=== PATIENT | female | born 1980 | race Two or more races ===

== ENCOUNTER 2018-03-21 13:24 | Outpatient (CLI) | payer OTHER ==
[~2018-03-21 13:24] MED LIST: BENADRYL50 MG PO; CIPRO500 MG PO; LEVSIN0.125 MG PO; MEDROL4 MG PO; ULTRACET PO; ZANTAC300 MG PO; ZOFRAN4 MG PO
== END 2018-03-21 16:42 | disposition home or self-care (01) ==
LOC: RAD 13:24
DX: M12.861 Other specific arthropathies, not elsewhere classified, right knee (principal); M19.90 Unspecified osteoarthritis, unspecified site

== ENCOUNTER 2018-04-17 06:57 | Outpatient (CLI) | payer OTHER | END 2018-04-17 17:00 | disposition home or self-care (01) | LOC: MAMO-SONO 06:57 | DX: Z12.31 Encounter for screening mammogram for malignant neoplasm of breast (principal); N64.4 Mastodynia; R10.9 Unspecified abdominal pain; N63.10 Unspecified lump in the right breast, unspecified quadrant; N63.20 Unspecified lump in the left breast, unspecified quadrant; R10.2 Pelvic and perineal pain ==

== ENCOUNTER 2018-04-22 08:10 | Outpatient (CLI) | payer OTHER | END 2018-04-22 08:17 | disposition home or self-care (01) | LOC: RAD 08:10 | DX: J44.9 Chronic obstructive pulmonary disease, unspecified (principal) ==

== ENCOUNTER 2019-01-07 12:46 | Outpatient (CLI) | payer OTHER | END 2019-01-07 12:51 | disposition home or self-care (01) | LOC: LAB 12:46 | DX: G43.909 Migraine, unspecified, not intractable, without status migrainosus (principal) ==

== ENCOUNTER 2019-02-03 07:51 | Outpatient (CLI) | payer OTHER | END 2019-02-03 08:06 | disposition home or self-care (01) | LOC: TOM 07:51 | DX: G43.909 Migraine, unspecified, not intractable, without status migrainosus (principal) ==

== ENCOUNTER → 2019-03-26 | Emergency (ER) | payer OTHER ==
[~2019-03-26] VITALS: Ht 157.5 cm; Wt 60.3 kg
== END | disposition home or self-care (01) ==
LOC: ER 12:40
DX: K29.70 Gastritis, unspecified, without bleeding (principal)

== ENCOUNTER → 2020-04-12 | Outpatient (CLI) | payer OTHER | END | disposition home or self-care (01) | LOC: MAMO-SONO 09:45 | DX: Z12.31 Encounter for screening mammogram for malignant neoplasm of breast (principal); N64.59 Other signs and symptoms in breast; N60.02 Solitary cyst of left breast; N60.01 Solitary cyst of right breast ==

== ENCOUNTER 2020-04-26 07:43 | Outpatient (CLI) | payer OTHER | END 2020-04-26 08:03 | disposition HB | LOC: TOM 07:43 | DX: R10.2 Pelvic and perineal pain (principal); R10.84 Generalized abdominal pain ==

== ENCOUNTER 2020-06-17 16:52 | Outpatient (CLI) | payer OTHER | END 2020-06-17 16:53 | disposition home or self-care (01) | LOC: RAD 16:52 | DX: R07.89 Other chest pain (principal); J44.9 Chronic obstructive pulmonary disease, unspecified ==

== ENCOUNTER 2020-10-12 21:10 | Emergency (ER) | payer OTHER ==
[~2020-10-12] VITALS: Ht 157.5 cm; Wt 60.8 kg
[2020-10-13] MEDS ORDERED: PYRIDIUM DS200 MG PO (02:53)
[2020-10-13] MEDS ORDERED: CEPHALEXIN500 M1 PO (02:53)
== END 2020-10-13 03:17 | disposition home or self-care (01) ==
LOC: ER 21:10
DX: N20.1 Calculus of ureter (principal)

== ENCOUNTER 2021-10-12 07:46 | Emergency (ER) | payer OTHER ==
[~2021-10-12] VITALS: Ht 157.5 cm; Wt 46.7 kg
[~2021-10-12 07:46] MED LIST changes: +CEPHALEXIN500 M1 PO; +PYRIDIUM DS200 MG PO
[2021-10-12] MEDS ORDERED: CYCLOBENZAPRINE10 MG PO (10:30)
[2021-10-12] MEDS ORDERED: ULTRAM50 MG PO (10:30)
== END 2021-10-12 10:36 | disposition home or self-care (01) ==
LOC: ER 07:46
DX: R07.89 Other chest pain (principal); Z20.822 Contact with and (suspected) exposure to COVID-19; Z88.8 Allergy status to other drugs, medicaments and biological substances; Z88.6 Allergy status to analgesic agent; Z91.040 Latex allergy status

== ENCOUNTER 2021-10-31 07:32 | Outpatient (CLI) | payer OTHER ==
[~2021-10-31 07:32] MED LIST changes: +CYCLOBENZAPRINE10 MG PO; +ULTRAM50 MG PO
== END 2021-10-31 07:45 | disposition home or self-care (01) ==
LOC: TOM 07:32
PROVIDERS: ATTEND Internal Medicine Cardiovascular Disease
DX: J44.9 Chronic obstructive pulmonary disease, unspecified (principal)

== ENCOUNTER 2023-01-29 07:44 | Outpatient (CLI) | payer OTHER ==
[~2023-01-29 07:44] MED LIST changes: +LIDOCAINE15 GM TOP
== END 2023-01-29 08:06 | disposition home or self-care (01) ==
LOC: MAMO-SONO 07:44
PROVIDERS: ATTEND Obstetrics & Gynecology
DX: Z12.31 Encounter for screening mammogram for malignant neoplasm of breast (principal); N64.4 Mastodynia; N63.0 Unspecified lump in unspecified breast

== ENCOUNTER → 2023-04-11 13:06 | Outpatient (CLI) | payer OTHER | END | disposition home or self-care (01) | LOC: NUCLEAR 13:00 | DX: M41.9 Scoliosis, unspecified (principal); M54.2 Cervicalgia; M54.59 Other low back pain; M81.0 Age-related osteoporosis without current pathological fracture ==

== ENCOUNTER 2023-09-10 08:01 | Outpatient (CLI) | payer OTHER | END 2023-09-10 08:30 | disposition home or self-care (01) | LOC: MAMO-SONO 08:01 | PROVIDERS: ATTEND Obstetrics & Gynecology | DX: K57.00 Diverticulitis of small intestine with perforation and abscess without bleeding (principal); R10.2 Pelvic and perineal pain; N64.4 Mastodynia; N63 Unspecified lump in breast; Z12.31 Encounter for screening mammogram for malignant neoplasm of breast ==

== ENCOUNTER 2023-09-19 12:44 | Outpatient (CLI) | payer OTHER | END 2023-09-19 13:02 | disposition home or self-care (01) | LOC: RAD 12:44 | PROVIDERS: ATTEND Internal Medicine Cardiovascular Disease | DX: M46.47 Discitis, unspecified, lumbosacral region (principal) ==

== ENCOUNTER 2023-12-21 12:22 | Outpatient (CLI) | payer OTHER | END 2023-12-21 12:32 | disposition home or self-care (01) | LOC: RAD 12:22 | PROVIDERS: ATTEND Internal Medicine Cardiovascular Disease | DX: M12.9 Arthropathy, unspecified (principal); M19.90 Unspecified osteoarthritis, unspecified site ==

== ENCOUNTER 2024-01-22 10:09 | Outpatient (CLI) | payer OTHER | END 2024-01-22 10:20 | disposition home or self-care (01) | LOC: SONOGRAMA 10:09 | DX: M72.2 Plantar fascial fibromatosis (principal) ==

== ENCOUNTER 2024-09-19 07:11 | Outpatient (CLI) | payer OTHER | END 2024-09-19 07:20 | disposition home or self-care (01) | LOC: MRI 07:11 | PROVIDERS: ATTEND Internal Medicine Cardiovascular Disease | DX: M46.47 Discitis, unspecified, lumbosacral region (principal) | CPT/HCPCS: 72148 ==

== ENCOUNTER 2025-03-03 07:16 | Outpatient (CLI) | payer OTHER | END 2025-03-03 07:28 | disposition home or self-care (01) | LOC: MAMO-SONO 07:16 | PROVIDERS: ATTEND Obstetrics & Gynecology | DX: N64.4 Mastodynia (principal); N63 Unspecified lump in breast; Z12.31 Encounter for screening mammogram for malignant neoplasm of breast ==